=== PATIENT | female | born 1980 ===

== ENCOUNTER 2017-03-26 08:11 | Emergency (ER) | payer MEDICAID ==
[2017-03-26 08:11] VITALS: BMI 23.2
[2017-03-26 08:26] VITALS: RESP 16; TEMP 98.2
[2017-03-26] MEDS ORDERED: Sodium Chloride 0.9% 1,000 ML IV ONE (08:53)
[2017-03-26] MEDS ORDERED: Sodium Chloride 0.9% 1,000 ML ONE (09:04)
[2017-03-26 09:06] LABS: RBC URINE 1 /hpf (0-3); URINE BILIRUBIN NEGATIVE (NEGATIVE); URINE BLOOD NEGATIVE (NEGATIVE); URINE COLOR Yellow (YELLOW); URINE GLUCOSE (UA) NORMAL (Normal); URINE KETONE NEGATIVE (NEGATIVE); URINE LEUKOCYTE ESTERASE NEG Leu/uL (Negative); URINE PROTEIN NEGATIVE (NEGATIVE); URINE UROBILINOGEN NORMAL mg/dL (0.2-1.0); WBC URINE 1 /hpf (0-5)
[2017-03-26 09:18] LABS: EOS # 0.1 K/uL (0.0-0.7); HEMATOCRIT 32.4 % (34.0-47.0); LYMPH # 1.3 K/uL (1.0-4.3); MEAN CELL VOLUME 75.5 fL (81.0-99.0); MEAN CORPUSCULAR HEMOGLOBIN 24.1 pg (27.0-31.0); MONO # 0.3 K/uL (0.0-0.8); NRBC % 0.1 % (0.0-2.0)
[2017-03-26 09:23] LABS: EOS % 4.7 % (0.0-4.0); LYMPH % 44.7 % (20.0-40.0); MEAN PLATELET VOLUME 7.6 fL (7.2-11.7); MONO % 9.5 % (0.0-10.0); RED CELL DISTRIBUTION WIDTH 16.1 % (11.5-14.5)
[2017-03-26 09:24] LABS: CHLORIDE 102 mmol/L (98-107); POTASSIUM 3.7 mmol/L (3.6-5.2); SODIUM 140 mmol/L (132-148)
[2017-03-26 09:27] LABS: ALB/GLOB RATIO 1.2 (1.0-2.1); ALKALINE PHOSPHATASE 35 U/L (38-126); ALT/SGPT 26 U/L (9-52); AST/SGOT 24 U/L (14-36); BILIRUBIN,TOTAL 0.6 mg/dL (0.2-1.3); BLOOD UREA NITROGEN 7 mg/dL (7-17); CALCIUM 9.2 mg/dl (8.6-10.4); CARBON DIOXIDE 27 mmol/L (22-30); GFR AFRICAN-AMERICAN > 60; GLUCOSE,RANDOM 78 mg/dL (65-105); TOTAL PROTEIN 7.9 g/dL (6.3-8.3)
--- NOTE | 2017-03-26 10:39 | C.PDOC ---
History Of Present Illness 37 y/o female presents to ED for left sided pelvic pain associated with nausea for the last 2-3 days. Pt notes that she has history of ovarian cyst on the left side, and also c/odysuria. Pt denies vaginal discharge, vaginal bleeding, vomiting, diarrhea, fever, chills. Time Seen by Provider: 03/26/17 08:20 Chief Complaint (Nursing): Abdominal Pain History Per: Patient History/Exam Limitations: no limitations Onset/Duration Of Symptoms: Days (2-3) Current Symptoms Are (Timing): Still Present Severity: Mild Location Of Pain/Discomfort: Suprapubic Radiation Of Pain To:: None Quality Of Discomfort: "Pain" Associated Symptoms: Nausea, Urinary Symptoms (dysuria). denies: Vomiting, Diarrhea, Loss Of Appetite, Back Pain, Chest Pain, Constipation Exacerbating Factors: None Alleviating Factors: None Additional History Per: Patient Abnormal Vaginal Bleeding: No Past Medical History Reviewed: Historical Data, Nursing Documentation, Vital Signs Vital Signs: Last Vital Signs Temp 98.2 F 03/26/17 11:26 Pulse 56 L 03/26/17 11:26 Resp 16 03/26/17 11:26 BP 149/81 03/26/17 11:26 Pulse Ox 100 03/26/17 11:26 - Medical History PMH: HTN (controlled) - [facility] Procedures MANUAL ASSIST CATARINA SALMON (11/24/12) Family History: States: No Known Family Hx - Social History Hx Tobacco Use: No Hx Alcohol Use: No Hx Substance Use: No - Immunization History Hx Tetanus Toxoid Vaccination: No Hx Influenza Vaccination: No Hx Pneumococcal Vaccination: No Review Of Systems Except As Marked, All Systems Reviewed And Found Negative. Constitutional: Negative for: Fever, Chills Cardiovascular: Negative for: Chest Pain, Palpitations Respiratory: Negative for: Shortness of Breath Gastrointestinal: Positive for: Nausea. Negative for: Vomiting, Diarrhea, Constipation Genitourinary: Positive for: Dysuria, Pelvic Pain. Negative for: Frequency, Hematuria, Vaginal Discharge, Vaginal Bleeding Musculoskeletal: Negative for: Back Pain Skin: Negative for: Rash Physical Exam - Physical Exam Appears: Well, Non-toxic, No Acute Distress Skin: Warm, Dry, No Rash Eye(s): bilateral: Normal Inspection Oral Mucosa: Moist Neck: Supple Chest: Symmetrical Cardiovascular: Rhythm Regular Respiratory: Normal Breath Sounds, No Rales, No Rhonchi, No Wheezing Gastrointestinal/Abdominal: Bowel Sounds, Soft, Tenderness (mild suprapubic, LLQ TTP), No Guarding, No Rebound Back: No CVA Tenderness Extremity: Normal ROM Neurological/Psych: Oriented x3 ED Course And Treatment - Laboratory Results Result Diagrams: 03/26/17 09:13 03/26/17 09:13 O2 Sat by Pulse Oximetry: 98 (on RA) Pulse Ox Interpretation: Normal - CT Scan/US Transvaginal US Other Rad Studies (CT/US): Read By Radiologist, Radiology Report Reviewed CT/US Interpretation: Accession No. : [id number]. Patient Name / ID : ALVIN GODFREY / [id number]. Exam Date : 03/26/2017 09:29:45 ( Approved ). Study Comment : Sex / Age : F / 37Y. Creator : Abdifatah Coffman MD. Dictator : Abdifatah Coffman MD. Java Xml Developer : Hybrid Car Mechanic : Abdifatah Coffman MD. Approver2 : Report Date : 03/26/2017 10:53:37. My Comment : . Pelvic ultrasound. History: Left adnexal pain. Pelvic pain. Comparison: None available. Technique: Real-time sonography was performed through the pelvis utilizing transabdominal and transvaginal techniques. Findings: Uterus: 10.7 x 5.4 x 7.7 centimeters. Heterogeneous echotexture. Anteverted. Endometrium measures 9.4 millimeters. Small amount of free fluid within the pelvic cul-de-sac and adjacent to the left ovary. Right ovary: 2.6 x 1.8 x 2.1 centimeters. Normal flow. Left ovary: 3.9 x 1.9 x 3.2 centimeters. Normal flow. Small hypoechoic cyst measuring 2.1 x 1.9 x 2.0 centimeters. Impression: 2.1 centimeter left ovarian cyst. Small amount of free fluid within the pelvic cul-de-sac and adjacent to the left ovary. Progress Note: Blood work, UA, Upreg, pelvis/transvag ultrasound ordered and reviewed. Patient was given IV NS bolus, and Tylenol PO. Reevaluation Time: 11:20 Reassessment Condition: Improved (On reassessment, patient is resting comfortably and states she feels better. On exam, abdomen is soft and nontender. Patient is well appearing, with normal vitals. US confirms left adnexal cyst. Upreg & UA (-). Patient instructed to follow up with real estate associate within 1 week, and she understands she should return to ED if symptoms worsen.) Disposition Counseled Patient/Family Regarding: Studies Performed, Diagnosis, Need For Followup, Rx Given - Disposition Referrals: [facility] [Outside] Disposition: HOME/ ROUTINE Disposition Time: 11:20 Condition: STABLE Additional Instructions: SEGUIMIENTO CON FERNANDEZ OB / GARBAGE WORKER DENTRO DE 1 SEMANA USE EL MEDICAMENTO DEL DOLOR [place] SE NECESITA VOLVER A LA CHERIE DE EMERGENCIA SI SNTOMAS EMPEORARAN Prescriptions: Ibuprofen [Motrin] 600 mg PO Q6 PRN #20 tab PRN Reason: PAIN Instructions: Ovarian Cyst (ED) Forms: [employer] (Togolese) Print Language: SINHALA - POA Present On Arrival: None - Clinical Impression Clinical Impression: Left ovarian cyst - Scribe Statement The provider has reviewed the documentation as recorded by the Betty Garcia All medical record entries made by the Scribe were at my direction and personally dictated by me. I have reviewed the chart and agree that the record accurately reflects my personal performance of the history, physical exam, medical decision making, and the department course for this patient. I have also personally directed, reviewed, and agree with the discharge instructions and disposition.
--- NOTE | 2017-03-26 10:55 | US ---
Pelvic ultrasound History: Left adnexal pain. Pelvic pain. Comparison: None available. Technique: Real-time sonography was performed through the pelvis utilizing transabdominal and transvaginal techniques. Findings: Uterus: 10.7 x 5.4 x 7.7 centimeters. Heterogeneous echotexture. Anteverted. Endometrium measures 9.4 millimeters. Small amount of free fluid within the pelvic cul-de-sac and adjacent to the left ovary. Right ovary: 2.6 x 1.8 x 2.1 centimeters. Normal flow. Left ovary: 3.9 x 1.9 x 3.2 centimeters. Normal flow. Small hypoechoic cyst measuring 2.1 x 1.9 x 2.0 centimeters. Impression: 2.1 centimeter left ovarian cyst. Small amount of free fluid within the pelvic cul-de-sac and adjacent to the left ovary.
[2017-03-26 11:29] VITALS: BP 149/81; PULSE 56
[2017-03-28 16:55] VITALS: O2SAT 98
== END 2017-03-26 11:35 | disposition home or self-care (01) ==
LOC: C.ER 08:11
DX: N83.202 Unspecified ovarian cyst, left side (principal)
CPT/HCPCS: 76830; 76856; 80053; 81001; 84703; 85025; 96360; 99284; J7040

== ENCOUNTER 2017-08-02 13:04 | Emergency (ER) | payer MEDICAID ==
[2017-08-02 13:44] VITALS: BMI 24.5
[2017-08-02 13:47] VITALS: TEMP 98.9; O2SAT 100
--- NOTE | 2017-08-02 15:42 | C.PDOC ---
History Of Present Illness 37 y/o female with PMHx of HTN and left ovarian cyst presents to ED with complaints of lower abdominal pain for 3 days radiating to left leg. Patient states she repeatedly gets symptoms associated with menstrual cycle. Patient states she took Tylenol last night with no improvement which prompted visit to ED today. Patient denies nausea, vomiting, diarrhea, sob, fever, chills, chest pain or any other complaints at this time. LMP x1 week ago as per patient. Time Seen by Provider: 08/02/17 15:29 Chief Complaint (Nursing): Abdominal Pain History Per: Patient History/Exam Limitations: no limitations Onset/Duration Of Symptoms: Days Current Symptoms Are (Timing): Still Present Location Of Pain/Discomfort: RLQ, LLQ Past Medical History Reviewed: Historical Data, Nursing Documentation, Vital Signs Vital Signs: Last Vital Signs Temp 98.9 F 08/02/17 13:44 Pulse 58 L 08/02/17 17:38 Resp 16 08/02/17 17:38 BP 169/103 H 08/02/17 17:38 Pulse Ox 100 08/02/17 18:15 - Medical History PMH: HTN (controlled) Surgical History: No Surg Hx - [facility] Procedures MANUAL ASSIST DELIV NEC (11/24/12) Family History: States: No Known Family Hx - Social History Hx Tobacco Use: No Hx Alcohol Use: No Hx Substance Use: No - Immunization History Hx Tetanus Toxoid Vaccination: No Hx Influenza Vaccination: No Hx Pneumococcal Vaccination: No Review Of Systems Constitutional: Negative for: Fever, Chills Gastrointestinal: Positive for: Abdominal Pain. Negative for: Nausea, Vomiting Musculoskeletal: Positive for: Leg Pain Skin: Negative for: Rash Physical Exam - Physical Exam Appears: Non-toxic, No Acute Distress Skin: Warm, Dry, No Rash Head: Atraumatic, Normacephalic Eye(s): bilateral: Normal Inspection Oral Mucosa: Moist Neck: Normal ROM, Supple Cardiovascular: Rhythm Regular Gastrointestinal/Abdominal: Tenderness (RLQ and LLQ), No Guarding, No Rebound, Other (Negative Mcburney's point) Back: CVA Tenderness (Mild left ) ED Course And Treatment - Laboratory Results Result Diagrams: 08/02/17 15:57 08/02/17 15:57 O2 Sat by Pulse Oximetry: 100 (RA) Pulse Ox Interpretation: Normal Medical Decision Making Medical Decision Making: Assessment: Abdominal Pain Plan: Pelvis US , Blood work, UA ordered, Toradol administered Progress: On re evaluation pt feels better, will be discharged with diagnosis non specific abdominal pain and advised to follow up with OB in 2 days Disposition Counseled Patient/Family Regarding: Studies Performed, Diagnosis, Need For Followup, Rx Given - Disposition Referrals: [facility] [Outside] Disposition: HOME/ ROUTINE Disposition Time: 18:18 Condition: STABLE Additional Instructions: follow up with your doctor or medical clinic in 2 days call to make an appointment take medications as prescribed return to hospital if symptoms worsens or progress Prescriptions: Acetaminophen/Codeine [Tylenol/Codeine 300 MG/30 MG] 1 tab PO Q6H PRN #12 tab PRN Reason: Pain, Severe (8-10) Naproxen [Naprosyn] 500 mg PO BID PRN #16 tab PRN Reason: Pain, Moderate (4-7) Instructions: Abdominal Pain (ED) Forms: [facility] (Monegasque), General Discharge Instructions - Clinical Impression Clinical Impression: Abdominal pain - Scribe Statement The provider has reviewed the documentation as recorded by the Lilianaibadrianna Medeiros All medical record entries made by the Lilianaibadrianna were at my direction and personally dictated by me. I have reviewed the chart and agree that the record accurately reflects my personal performance of the history, physical exam, medical decision making, and the department course for this patient. I have also personally directed, reviewed, and agree with the discharge instructions and disposition.
[2017-08-02 16:10] LABS: BASO % 0.9 % (0.0-2.0); EOS # 0.2 K/uL (0.0-0.7); EOS % 4.8 % (0.0-4.0); HEMOGLOBIN 10.4 g/dL (11.0-16.0); LYMPH # 1.7 K/uL (1.0-4.3); LYMPH % 41.7 % (20.0-40.0); MEAN CORPUSCULAR HGB CONC 33.1 g/dL (33.0-37.0); MEAN PLATELET VOLUME 7.8 fL (7.2-11.7); MONO # 0.4 K/uL (0.0-0.8); MONO % 9.5 % (0.0-10.0); NEUT # 1.8 K/uL (1.8-7.0); NEUT % 43.1 % (50.0-75.0); NRBC % 0.1 % (0.0-2.0); RBC 4.01 Mil/uL (3.80-5.20); RED CELL DISTRIBUTION WIDTH 15.8 % (11.5-14.5); WHITE BLOOD COUNT 4.1 K/uL (4.8-10.8)
[2017-08-02 16:11] LABS: MEAN CELL VOLUME 78.4 fL (81.0-99.0)
[2017-08-02 16:14] LABS: SQUAMOUS EPITHIAL 1 /hpf (0-5); URINE BILIRUBIN NEGATIVE (NEGATIVE); URINE BLOOD NEGATIVE (NEGATIVE); URINE CLARITY Clear (Clear); URINE COLOR Yellow (YELLOW); URINE GLUCOSE (UA) NORMAL (Normal); URINE HYALINE CAST 0-2 /lpf (0-2); URINE LEUKOCYTE ESTERASE NEG Leu/uL (Negative); URINE NITRATE NEGATIVE (NEGATIVE); URINE PROTEIN 1+ mg/dL (NEGATIVE)
[2017-08-02 16:25] LABS: ALB/GLOB RATIO 1.2 (1.0-2.1); ALT/SGPT 19 U/L (9-52); AST/SGOT 21 U/L (14-36); BLOOD UREA NITROGEN 11 mg/dL (7-17); CALCIUM 9.1 mg/dl (8.6-10.4); GFR AFRICAN-AMERICAN > 60; GFR NON-AFRICAN AMERICAN > 60; LIPASE 52 U/L (23-300)
[2017-08-02 17:39] VITALS: BP 169/103; PULSE 58; RESP 16
--- NOTE | 2017-08-02 17:41 | US ---
EXAM: US Pelvis Complete, Transabdominal US Pelvis, Transvaginal US Duplex Arterial/Venous of the Pelvis, Complete CLINICAL HISTORY: 37 years old, female; Pain; Pelvic pain; Additional info: Abd. Pain TECHNIQUE: Real-time transabdominal and transvaginal pelvic ultrasound (complete) with image documentation. Transvaginal imaging was used for better evaluation of the endometrium and adnexa. Real-time duplex ultrasound scan of the arterial and venous flow of the pelvis with color Doppler flow and spectral waveform analysis. COMPARISON: No relevant prior studies available. FINDINGS: Uterus/cervix: The uterus measures 10.4 x 5.6 x 7.1 cm. The endometrial stripe measures 0.9 cm. No myometrial mass. Right ovary: The right ovary measures 3.5 x 3 x 2.8 cm. Blood flow seen in the right ovary on color Doppler and pulse Doppler examination. Left ovary: The left ovary measures 3 x 1.8 x 2.9 cm. blood flow is seen in the left ovary on pulsed Doppler examination. Free fluid: No free fluid. Bladder: Unremarkable as visualized. Wall is normal thickness for degree of distention. IMPRESSION: No acute findings. EXAM: US , Transvaginal EXAM DATE/TIME: Exam ordered 08/02/2017 3:40 PM CLINICAL HISTORY: 37 years old, female; Pain; Pelvic pain; Additional info: Abd. Pain TECHNIQUE: Real-time transvaginal obstetrical ultrasound of the maternal pelvis and a first trimester with image documentation. Transvaginal imaging was used for better evaluation of the fetus and adnexa. COMPARISON: US - PELVIS ULTRASOUND 2015-09-11 15:08 FINDINGS: Uterus/cervix: The uterus measures 10 x 5.3 x 6.4 cm.. The endometrial stripe measures 1.4 cm. No myometrial mass. Ovaries: The right ovary measures 4 x 2.2 x 3 cm and contains a complex lesion within the ovary measuring approximately 2.4 cm. Vascularity is noted around a complex follicle/corpus luteum cyst. The left ovary measures 2.6 x 1.7 x 2.4 cm. Subcentimeter follicles are present. Blood flow is present on color Doppler and pulsed Doppler examination. Free fluid: A trace amount of fluid is noted in the posterior cul-de-sac. IMPRESSION: Normal ultrasound for a menstruating female.
== END 2017-08-02 18:30 | disposition home or self-care (01) ==
LOC: C.ER 13:04
DX: R10.31 Right lower quadrant pain (principal); R10.32 Left lower quadrant pain
CPT/HCPCS: 76830; 76856; 80053; 81001; 83690; 85025; 87491; 87591; 96374; 99284; J1885